=== PATIENT | female | born 1945 | race Caucasian/White ===

== ENCOUNTER 2018-12-05 10:39 | Outpatient (CLI) | payer MEDICARE ==
--- NOTE | 2018-12-05 11:49 | BD ---
DEXA BONE DENSITY STUDY: HISTORY: Postmenopausal. FINDINGS: Lumbar Spine: BMD (g/cm2) L1 1.276 T-Score: +2.6 L2 1.371 T-Score: +3.1 L3 1.462 T-Score: +3.4 L4 1.590 T-Score: +4.8 L1-L4 1.440 T-Score: +3.6 Femoral Neck: 0.916 T-Score: +0.6 Total Femur: 1.223 T-Score: +2.3 Impression: Normal bone mineral density of the lumbar spine and left femoral neck. POS: TPC
== END 2018-12-05 10:40 | disposition home or self-care (01) ==
LOC: BICMAMMO 10:39
PROVIDERS: ATTEND Family Medicine
DX: M81.0 Age-related osteoporosis without current pathological fracture (principal)
CPT/HCPCS: 77080

== ENCOUNTER 2022-09-13 15:45 | Emergency (ER) | payer MEDICARE, OTHER ==
[2022-09-13] MEDS ORDERED: Ketorolac Tromethamine 30 MG/ML VIAL ONE (17:20)
[2022-09-13] MEDS ORDERED: Diazepam 5 MG TAB ONE (18:49)
[2022-09-13] MEDS ORDERED: Morphine 4 MG/ML VIAL ONE (19:29)
[2022-09-13] MEDS ORDERED: Fentanyl 100 MCG/2 ML VIAL ONE (19:40)
[2022-09-13] MEDS ORDERED: Lidocaine 1% PF 5 ML VIAL ONE (19:51)
[2022-09-13] MEDS ORDERED: Bacitracin 1 PK ONE (20:19)
== END 2022-09-13 20:47 | disposition home or self-care (01) ==
LOC: ERS 15:45
DX: S16.1XXA Strain of muscle, fascia and tendon at neck level, initial encounter (principal); S61.411A Laceration without foreign body of right hand, initial encounter; I10 Essential (primary) hypertension; W22.8XXA Striking against or struck by other objects, initial encounter; Y93.I9 Activity, other involving external motion; Z79.899 Other long term (current) drug therapy
CPT/HCPCS: 12001; 70450; 72125; 96372; 96374; J1885; J2270; J3010

== ENCOUNTER 2023-07-05 13:40 | Outpatient (CLI) | payer MEDICARE, OTHER | END 2023-07-05 13:41 | disposition home or self-care (01) | LOC: SCSRAD 13:40 | PROVIDERS: ATTEND Family Medicine | DX: R10.9 Unspecified abdominal pain (principal) | CPT/HCPCS: 74018; 81001; 87086 ==